=== PATIENT | male | born 2000 | race Two or more races ===

== ENCOUNTER 2019-06-06 21:38 | Emergency (ER) | payer MEDICAID ==
[~2019-06-06] VITALS: Ht 167.6 cm; Wt 93.0 kg
[2019-06-06 22:30] VITALS: BP 117/76
== END 2019-06-07 01:46 | disposition home or self-care (01) ==
LOC: ER 21:38
DX: R10.13 Epigastric pain (principal); R11.2 Nausea with vomiting, unspecified; R10.31 Right lower quadrant pain; E78.00 Pure hypercholesterolemia, unspecified; F17.200 Nicotine dependence, unspecified, uncomplicated; Z90.49 Acquired absence of other specified parts of digestive tract
CPT/HCPCS: 99281; 99282